=== PATIENT | female | born 1950 | race Caucasian/White ===

== ENCOUNTER 2017-12-15 09:39 | Day surgery (SDC) | payer MEDICARE ==
[2017-12-15] MEDS ORDERED: PROPOFOL 10 MG/ML VIAL IV ONE (09:40)
[2017-12-15] MEDS ORDERED: LIDOCAINE 2% MDV (20MG/ML) 20ML VIAL IV ONE (09:40)
--- NOTE | 2017-12-15 14:10 | Operative Note ---
DATE OF SURGERY: 12/15/2017 OPERATION: COLONOSCOPY to the cecum. INDICATION: Prior history of adenomatous polyps. The patient returns at this time after 5 years for surveillance. She denies current complaints. ANESTHESIA: Intravenous sedation was administered by the department of anesthesiology and included Diprivan titrated to effect. PROCEDURE: Following informed consent from this alert individual including a discussion of the risks and benefits of the procedure and an opportunity for the patient to ask questions, the patient was in the left lateral decubitus position. A digital rectal examination was performed. No abnormalities were noted. Following this, the Olympus [id number] video colonoscope was inserted into the rectum without resistance. The rectal mucosa had a normal appearance with normal folds and distensibility. The colonoscope was advanced up through the colon to the level of the cecum without much difficulty. Throughout the bowel the mucosa appeared normal, the folds were normal, and the bowel was fairly well distensible. The cecum was defined by noting the appendiceal orifice and ileocecal valve. Scattered diverticula were noted in the sigmoid colon and a few in the ascending colon. The colon preparation was good. From the base of the cecum, the colonoscope was then slowly withdrawn. No additional changes were appreciated. Upon withdrawal, again diverticulosis was apparent. Retroflexion in the rectum was endoscopically unremarkable except for small hypertrophied anal papillae. The endoscope was removed. The patient tolerated the procedure well and was returned to the recovery area in stable condition. IMPRESSION: 1. Diverticulosis. 2. No polyps noted. RECOMMENDATIONS: The patient was advised to have surveillance colonoscopy in 5 years' time or sooner if problems arise. Followup will be with Dr. Trudi Alva. As always, thank you for allowing me to participate in the care of your patient. CC: Dr. Trudi CORNEJO
== END 2017-12-15 11:42 | disposition home or self-care (01) ==
LOC: HOP 09:39
PROVIDERS: ATTEND Internal Medicine Gastroenterology
DX: Z12.11 Encounter for screening for malignant neoplasm of colon (principal); Z86.010 Personal history of colon polyps; K57.30 Diverticulosis of large intestine without perforation or abscess without bleeding
CPT/HCPCS: 00811; G0105